=== PATIENT | female | born 1965 | race Caucasian/White ===

== ENCOUNTER → 2016-06-01 | Outpatient (REF) | LOC: WSOH 09:00 → WSPT 09:45 | DX: Z02.89 Encounter for other administrative examinations (principal) ==

== ENCOUNTER → 2016-10-06 | Outpatient (CLI) | payer OTHER | LOC: MC.RAD 11:14 | DX: Z12.31 Encounter for screening mammogram for malignant neoplasm of breast (principal) ==

== ENCOUNTER → 2016-11-18 | Outpatient (REF) | LOC: WSOH 14:00 | DX: Z02.89 Encounter for other administrative examinations (principal) ==

== ENCOUNTER → 2017-04-10 | Outpatient (CLI) | payer OTHER ==
[~2017-04-10] MED LIST: FLEXERIL5 MG PO; IMITREX100 MG PO; MOBIC15 MG PO; NEURONTIN300 MG/CAP PO; NORCO 325 MG-7.1 TAB PO; REQUIP 1MG T1 MG/TAB PO; STRATTERA100 MG PO; TIROSINT50 MC1 PO; TOPAMAX50 MG PO
== END ==
LOC: COL.RAD 04-05 10:30
DX: M48.061 Spinal stenosis, lumbar region without neurogenic claudication (principal); G54.4 Lumbosacral root disorders, not elsewhere classified

== ENCOUNTER 2017-04-11 08:14 | Emergency (ER) | payer OTHER ==
[~2017-04-11] VITALS: Ht 162.6 cm; Wt 67.7 kg
[2017-04-11 08:18] VITALS: TEMP 97.7
[2017-04-11] MEDS ORDERED: MOBIC15 MG PO (08:23)
[2017-04-11] MEDS ORDERED: TOPAMAX50 MG PO (08:24)
[2017-04-11] MEDS ORDERED: REQUIP 1MG T1 MG/TAB PO (08:25)
[2017-04-11] MEDS ORDERED: TIROSINT50 MC1 PO (08:25)
[2017-04-11] MEDS ORDERED: STRATTERA100 MG PO (08:26)
[2017-04-11] MEDS ORDERED: IMITREX100 MG PO (08:26)
[2017-04-11] MEDS ORDERED: FLEXERIL5 MG PO (08:27)
[2017-04-11] MEDS ORDERED: NEURONTIN300 MG/CAP PO (08:49)
[2017-04-11] MEDS ORDERED: NORCO 325 MG-7.1 TAB PO (08:49)
[2017-04-11 10:55] VITALS: BP 163/90; PULSE 95
== END 2017-04-11 10:59 | disposition home or self-care (01) ==
LOC: COL.ER 08:14
DX: M54.5 Low back pain (principal); M54.16 Radiculopathy, lumbar region
CPT/HCPCS: J1170; J1885; J2550

== ENCOUNTER → 2017-04-12 | Outpatient (CLI) | payer OTHER | LOC: MHCPAIN 11:18 | DX: G89.29 Other chronic pain (principal); M47.27 Other spondylosis with radiculopathy, lumbosacral region; M48.061 Spinal stenosis, lumbar region without neurogenic claudication | CPT/HCPCS: G0463 ==

== ENCOUNTER → 2017-04-13 | Outpatient (CLI) | payer OTHER | LOC: MHCPAIN 10:57 | DX: M47.27 Other spondylosis with radiculopathy, lumbosacral region (principal); M48.061 Spinal stenosis, lumbar region without neurogenic claudication | CPT/HCPCS: J1100; J2250; J3010; Q9967 ==

== ENCOUNTER → 2017-04-28 | Outpatient (CLI) | payer OTHER | LOC: MHCPAIN 11:38 | DX: G89.29 Other chronic pain (principal); M47.817 Spondylosis without myelopathy or radiculopathy, lumbosacral region; M54.16 Radiculopathy, lumbar region; M48.061 Spinal stenosis, lumbar region without neurogenic claudication | CPT/HCPCS: G0463 ==

== ENCOUNTER → 2017-05-04 | Outpatient (CLI) | payer OTHER | LOC: MHCPAIN 07:16 | DX: M47.27 Other spondylosis with radiculopathy, lumbosacral region (principal) | CPT/HCPCS: J1100; J2250; J3010; Q9967 ==

== ENCOUNTER → 2017-05-30 | Outpatient (CLI) | payer OTHER | LOC: MHCPAIN 11:27 | DX: G89.29 Other chronic pain (principal); M47.817 Spondylosis without myelopathy or radiculopathy, lumbosacral region; M54.16 Radiculopathy, lumbar region; M48.061 Spinal stenosis, lumbar region without neurogenic claudication | CPT/HCPCS: G0463 ==

== ENCOUNTER 2017-06-30 09:45 | Outpatient (RCR) | payer OTHER | END 2017-07-10 09:51 | disposition home or self-care (01) | LOC: WSPT 09:45 | DX: M47.26 Other spondylosis with radiculopathy, lumbar region (principal); M51.16 Intervertebral disc disorders with radiculopathy, lumbar region; M48.061 Spinal stenosis, lumbar region without neurogenic claudication; Z90.49 Acquired absence of other specified parts of digestive tract; Z98.890 Other specified postprocedural states | CPT/HCPCS: G0283-GP ==